=== PATIENT | female | born 1970 | race Caucasian/White ===

== ENCOUNTER 2023-07-18 07:34 | Emergency (ER) | payer SELFPAY | END 2023-07-18 08:15 | disposition left against medical advice (07) | LOC: MADERS 07:34 | DX: Z53.21 Procedure and treatment not carried out due to patient leaving prior to being seen by health care provider (principal) ==

== ENCOUNTER 2023-07-20 09:05 | Emergency (ER) | payer OTHER, SELFPAY ==
[2023-07-20 10:09] LABS: Bilirubin Negative (Negative); Blood, Urine Moderate (Negative); Glucose, Urine (Dipstick) Negative (Negative); Ketone, Urine Negative (Negative); Leukocyte Small (Negative); Nitrite Negative (Negative); Protein, Urine (Dipstick) 30 mg/dL (Neg-Trace); Urobilinogen 0.2 mg/dL (Less than 2)
[2023-07-20 10:12] LABS: Clarity Cloudy (Clear); Specific Gravity, Urine 1.024 (1.002-1.036)
[2023-07-20 10:16] LABS: RBC/HPF 21-50 HPF (0-3)
[2023-07-20 10:17] LABS: Bacteria/HPF 1+ HPF (None Seen); CAUTI Indications for Culture Pelvic or flank pain; Calcium Oxalate Crystals 2+ HPF (None Seen); Urine Culture Reflex Yes Yes; WBC/HPF 21-50 HPF (0-3)
[2023-07-20] MEDS ORDERED: Orphenadrine Citrate 60 MG/2 ML VIAL ONE (10:23)
== END 2023-07-20 10:47 | disposition home or self-care (01) ==
LOC: MADERS 09:05
DX: M54.32 Sciatica, left side (principal); F17.210 Nicotine dependence, cigarettes, uncomplicated
CPT/HCPCS: 81001; 87086; 96372; 99283; J2360

== ENCOUNTER 2023-11-02 00:05 | Emergency (ER) | payer MEDICARE, OTHER, SELFPAY | END 2023-11-02 01:18 | disposition home or self-care (01) | LOC: EEVIPCON 00:05 → MADERS 00:05 | DX: Z71.1 Person with feared health complaint in whom no diagnosis is made (principal); F41.9 Anxiety disorder, unspecified; F43.10 Post-traumatic stress disorder, unspecified; F17.210 Nicotine dependence, cigarettes, uncomplicated | CPT/HCPCS: 99282 ==